=== PATIENT | female | born 1995 | race Caucasian/White ===

== ENCOUNTER → 2019-05-15 | Outpatient (CLI) | payer OTHER ==
[2019-05-15 13:25] LABS: ABSOLUTE BASOPHILS 0.1 thou/uL (0.0-0.2); ABSOLUTE EOSINOPHILS 0.2 thou/uL (0.0-0.7); ABSOLUTE LYMPHOCYTES 3.9 thou/uL (0.8-5.3); ABSOLUTE MONOCYTES 1.1 thou/uL (0.0-1.2); ABSOLUTE NEUTROPHILS 7.4 thou/uL (1.6-8.1); BASOPHILS 0.9 %; EOSINOPHILS 1.6 %; HEMOGLOBIN 14.6 gm/dL (12.0-15.0); LYMPHOCYTES 30.4 %; MCH 28.7 pg (26.0-34.0); MCV 84.3 fL (80.0-100.0); MONOCYTES 8.6 %; MPV 7.2 fl. (7.2-11.1); NUCLEATED RBCS 0 /100WBC; PLATELET COUNT* 383 thou/uL (150-400); POLYS 58.5 %; RDW-CV 13.2 % (10.5-14.5); WBC 12.7 thou/uL (4.0-11.0)
[2019-05-15 13:37] LABS: ALBUMIN 3.8 g/dL (3.4-5.0); CREATININE 0.7 mg/dL (0.6-1.3); TOTAL BILIRUBIN 0.4 mg/dL (<0.1-1.0)
== END ==
LOC: M.RAD 12:35
PROVIDERS: Family Medicine
DX: R53.83 Other fatigue (principal); M25.561 Pain in right knee

== ENCOUNTER → 2019-08-07 | Outpatient (CLI) | payer OTHER | LOC: M.MRI 13:54 | DX: M23.021 Cystic meniscus, posterior horn of medial meniscus, right knee (principal) ==

== ENCOUNTER 2020-03-02 19:56 | Emergency (ER) | payer OTHER ==
[~2020-03-02] VITALS: Ht 152.4 cm; Wt 81.7 kg
[2020-03-02 20:41] LABS: URINE BILIRUBIN NEGATIVE (Negative); URINE BLOOD 3+ (Negative); URINE CLARITY CLOUDY; URINE COLOR YELLOW; URINE GLUCOSE-RANDOM NEGATIVE (Negative); URINE KETONES 1+ (Negative); URINE LEUKOCYTES-REFLEX 1+ (Negative); URINE PROTEIN 2+ (Negative); URINE SPECIFIC GRAVITY 1.025 (1.005-1.030); URINE UROBILINOGEN 0.2 E.U./dl (0.2-1.0)
[2020-03-02 20:42] LABS: URINE NITRITE-REFLEX POSITIVE (Negative)
[2020-03-02 21:03] LABS: BACTERIA-REFLEX >30 Many /HPF (None Seen); URINE WBC-REFLEX >25 Many /HPF (0-5)
[2020-03-02 21:04] LABS: CASTS None Seen /LPF (None Seen); CRYSTALS None Seen /LPF (None Seen); MUCUS 0-3 Light strn/LPF (None Seen); SQUAMOUS 4-10 Moderate /LPF (0-3)
[2020-03-02 21:36] LABS: ABSOLUTE BASOPHILS 0.1 thou/uL (0.0-0.2); ABSOLUTE EOSINOPHILS 0.2 thou/uL (0.0-0.7); ABSOLUTE LYMPHOCYTES 3.7 thou/uL (0.8-5.3); ABSOLUTE MONOCYTES 1.2 thou/uL (0.0-1.2); ABSOLUTE NEUTROPHILS 14.2 thou/uL (1.6-8.1); BASOPHILS 0.7 %; EOSINOPHILS 0.8 %; HEMATOCRIT 42.9 % (37.0-47.0); HEMOGLOBIN 14.5 gm/dL (12.0-15.0); LYMPHOCYTES 19.2 %; MCH 27.6 pg (26.0-34.0); MCHC 33.8 g/dL (28.0-37.0); MCV 81.6 fL (80.0-100.0); MONOCYTES 6.1 %; MPV 7.3 fl. (7.2-11.1); NUCLEATED RBCS 0 /100WBC; PLATELET COUNT* 434 thou/uL (150-400); POLYS 73.2 %; RBC 5.26 mil/uL (4.20-5.00); RDW-CV 13.8 % (10.5-14.5); WBC 19.4 thou/uL (4.0-11.0)
[2020-03-02 21:44] LABS: CALCIUM 8.9 mg/dL (8.5-10.1); CREATININE 0.9 mg/dL (0.6-1.3); POTASSIUM 3.4 mmol/L (3.5-5.1)
[2020-03-02 21:49] LABS: ALBUMIN 4.3 g/dL (3.4-5.0); TOTAL BILIRUBIN 0.7 mg/dL (<0.1-1.0); TOTAL PROTEIN 8.6 g/dL (6.4-8.2)
[2020-03-02] MEDS ORDERED: ONDANSETRON HCL4 M2 PO (22:37)
[2020-03-02] MEDS ORDERED: CEFDINIR300 MG PO (22:37)
[2020-03-02] MEDS ORDERED: NORCO 5-325 TA1 EAC2 PO (22:37)
[2020-03-02 22:46] VITALS: BP 151/88
== END 2020-03-02 22:47 | disposition home or self-care (01) ==
LOC: M.ERS 19:56
PROVIDERS: Emergency Medicine; Nurse Practitioner Family
DX: N39.0 Urinary tract infection, site not specified (principal); Z88.1 Allergy status to other antibiotic agents

== ENCOUNTER 2021-01-29 08:21 | Emergency (ER) | payer OTHER ==
[~2021-01-29] VITALS: Ht 152.4 cm; Wt 81.7 kg
[~2021-01-29 08:21] MED LIST: CEFDINIR300 MG PO; NORCO 5-325 TA1 EAC2 PO; ONDANSETRON HCL4 M2 PO
[2021-01-29] MEDS ORDERED: PROZAC 10 MG CA10 MG PO (08:37)
[2021-01-29 09:15] VITALS: BP 137/92
== END 2021-01-29 09:16 | disposition home or self-care (01) ==
LOC: M.ERS 08:21
DX: J06.9 Acute upper respiratory infection, unspecified (principal); Z20.822 Contact with and (suspected) exposure to COVID-19; Z90.89 Acquired absence of other organs; Z88.1 Allergy status to other antibiotic agents